=== PATIENT | female | born 1950 | race Caucasian/White ===

== ENCOUNTER 2016-07-03 10:00 | Outpatient (CLI) | payer OTHER ==
[2016-07-03 10:33] LABS: Eosinophils 3 % (0-10); Hemoglobin 15.2 g/dL (12.0-16.0); Lymphocytes 28 % (21-51); MDiff Complete? YES; Mean Corpuscular HGB CONC 33.1 g/dL (32.0-36.0); Mean Corpuscular Hemoglobin 30.3 pg (27.0-31.0); Mean Corpuscular Volume 91.7 fl (81.0-99.0); Mean Platelet Volume 8.4 fL (7.4-10.4); Monocytes 6 % (0-10); Neutrophil 63 % (42-75); Platelet Count 199 thou/uL (130-400); RBC Distribution Width 11.8 % (11.5-14.5); Red Blood Cell (RBC) Count 5.03 mill/uL (4.20-5.40)
[2016-07-03 10:34] LABS: Manual Diff?? YES; White Blood Cell (WBC) Count 4.6 thou/uL (4.8-10.8)
[2016-07-03 10:50] LABS: ALT (SGPT) 18 U/L (0-55); AST (SGOT) 17 U/L (5-34); Albumin 4.4 g/dL (3.4-4.8); Alkaline Phosphatase 86 U/L (40-150); Anion Gap 16 mmol/L (10-20); BUN (Urea Nitrogen) 13 mg/dL (9.8-20.1); Bilirubin, Total 0.7 mg/dL (0.2-1.2); Calc. Creatinine Clearance 0 mL/min (70-130); Calcium 9.5 mg/dL (7.8-10.44); Carbon Dioxide 26 mmol/L (23-31); Cardiac Risk 2.4 (Less than 4.5); Chloride 103 mmol/L (98-107); Cholesterol 166 mg/dL (< 200 Desired); Estimated GFR-MDRD 82; Globulin 2.5 g/dL (2.4-3.5); Glucose 93 mg/dL (80-115); HDL Cholesterol 70 mg/dL (>60 Neg Risk); LDL Cholesterol, Calculated 74 mg/dL; Protein, Total 6.9 g/dL (5.8-8.1); Sodium 141 mmol/L (136-145); Triglycerides 110 mg/dL (Less than 150)
== END 2016-07-03 10:01 | disposition home or self-care (01) ==
LOC: MADLAB 10:00
PROVIDERS: ATTEND Family Medicine
DX: E56.9 Vitamin deficiency, unspecified (principal); R53.81 Other malaise; N95.1 Menopausal and female climacteric states; J30.9 Allergic rhinitis, unspecified; R68.82 Decreased libido
CPT/HCPCS: 36415; 80053; 80061; 82157; 82306; 82670; 82728; 84403; 85025; 85652

== ENCOUNTER 2016-09-30 12:12 | Outpatient (CLI) | payer OTHER ==
[2016-09-30 13:48] LABS: Free T4 (Free Thyroxine) 1.01 ng/dL (0.70-1.48); Thyroid Stimulating Hormone 1.3806 uIU/mL (0.35-4.94)
== END 2016-09-30 12:13 | disposition home or self-care (01) ==
LOC: MADLAB 12:12
PROVIDERS: ATTEND Family Medicine
DX: E03.9 Hypothyroidism, unspecified (principal); N95.1 Menopausal and female climacteric states; J30.9 Allergic rhinitis, unspecified
CPT/HCPCS: 36415; 84439; 84443; 84481